=== PATIENT | female | born 1970 | race Caucasian/White ===

== ENCOUNTER 2016-10-14 11:52 | Inpatient (IN) | payer OTHER ==
[2016-10-14 16:35] VITALS: BMI 15.6
--- NOTE | 2016-10-14 16:36 | HP ---
CIWA Score - CIWA Score Nausea/Vomitin-Mild Nausea/No Vomiting Muscle Tremors: 4-Moderate,w/Arms Extend Anxiety: 4-Mod. Anxious/Guarded Agitation: 4-Moderately Restless Paroxysmal Sweats: 1-Minimal Palms Moist Orientation: 1-Uncertain about Date Tacttile Disturbances: 0-None Auditory Disturbances: 0-None Visual Disturbances: 0-None Headache: 0-None Present CIWA-Ar Total Score: 15 Admission ROS S - HPI Chief Complaint: withdrawal sx Allergies/Adverse Reactions: Allergies Allergy/AdvReac Type Severity Reaction Status Date / Time amoxicillin Allergy Severe Hives Verified 10/14/16 16:36 History of Present Illness: 46 years old female with long history of alcohol nicotine dependent, has urine incontinence x 5 years, chronic lower back pain, ambulate with cane, weight loss copd and depression is admitted to detox Exam Limitations: No Limitations - Ebola screening Have you traveled outside of the country in the last 21 days: No Have you had contact with anyone from an Ebola affected area: No Have you been sick,other than usual withdrawal symptoms: No Do you have a fever: No - Review of Systems Constitutional: Loss of Appetite, Changes in sleep, Weakness (right leg), Unintentional Wgt. Loss, Unexplained wgt Loss EENT: reports: No Symptoms Reported Respiratory: reports: SOB with Exertion Cardiac: reports: No Symptoms Reported GI: reports: Nausea, Poor Appetite, Poor Fluid Intake, Indigestion, Abdominal cramping : reports: Incontinence (x years) Musculoskeletal: reports: Back Pain, Joint Pain (both legs), Muscle Pain (both legs), Muscle Weakness (both legs) Integumentary: reports: Change in Color (right great toe), Erythema (right great toe) Neuro: reports: Seizure (10/13/16 treated with neurontin 1200 mg daily,), Tremors Endocrine: reports: No Symptoms Reported Hematology: reports: No Symptoms Reported Psychiatric: reports: Judgement Intact, Anxious, Depressed Other Systems: Reviewed and Negative Patient History - Patient Medical History Hx Anemia: Yes (NO CURRENT TX) Hx Asthma: No Hx Chronic Obstructive Pulmonary Disease (COPD): Yes (HX EMPHYSEMA--NO TX) Hx Cancer: Yes Hx Cardiac Disorders: No Hx Congestive Heart Failure: No Hx Hypertension: No Hx Hypercholesterolemia: No Hx Pacemaker: No HX Cerebrovascular Accident: No Hx Seizures: Yes (alcohol related-last episode was 10/13/16) Hx Dementia: No Hx Diabetes: No Hx Gastrointestinal Disorders: No Hx Liver Disease: Yes (cirhosis of the liver) Hx Genitourinary Disorders: No Hx Sexually Transmitted Disorders: No Hx Renal Disease (ESRD): No Hx Thyroid Disease: No Hx Human Immunodeficiency Virus (HIV): No (NEGATIVE HX) Hx Hepatitis C: No Hx Depression: Yes (NO CURRENT MED) Hx Suicide Attempt: No (DENIES) Hx Bipolar Disorder: No Hx Schizophrenia: No - Patient Surgical History Past Surgical History: Yes Hx Neurologic Surgery: No Hx Cataract Extraction: No Hx Cardiac Surgery: No Hx Lung Surgery: No Hx Breast Surgery: No Hx Breast Biopsy: No Hx Abdominal Surgery: No Hx Appendectomy: No Hx Cholecystectomy: No Hx Genitourinary Surgery: No Hx Section: No Hx Orthopedic Surgery: No Hx Hysterectomy: No Other Surgical History: vein stripping, right leg at age 27 Anesthesia Reaction: No - PPD History Previous Implant?: Yes Documented Results: Negative w/o proof Implanted On Prior [facility] Admission?: Yes Date: 05/28/14 PPD to be Administered?: Yes - Reproductive History Patient is a Female of Child Bearing Age (11 -55 yrs old): Yes Last Menstrual Period: 10/14/14 Patient : No - Smoking Cessation Smoking history: Current every day smoker Have you smoked in the past 12 months: Yes Aproximately how many cigarettes per day: 20 Cigars Per Day: 0 Hx Chewing Tobacco Use: No Initiated information on smoking cessation: Yes 'Breaking Loose' booklet given: 10/14/16 - Substance & Tx. History Hx Alcohol Use: Yes Hx Substance Use: No Substance Use Type: Alcohol Hx Substance Use Treatment: Yes (2014 [facility]) - Substances Abused Alcohol Route: Oral Frequency: Daily Amount used: magnum of wine Age of first use: 17 Date of Last Use: 10/14/16 Family Disease History - Family Disease History Family Disease History: Diabetes: Father (PR; STROKE-), Heart Disease: Father, Mother (PR;STROKE-) Admission Physical Exam S - Physical General Appearance: Yes: Appropriately Dressed, Moderate Distress, Alcohol on Breath, Thin, Tremorous, Irritable, Sweating, Anxious HEENTM: Yes: Hearing grossly Normal, Normal ENT Inspection, Normocephalic, Normal Voice Respiratory: Yes: Chest Non-Tender, No Respiratory Distress, No Accessory Muscle Use, Wheezing, Hyperresonant Neck: Yes: Supple, Trachea in good position Breast: Yes: Breasts Symetrical Cardiology: Yes: Regular Rhythm, S1, S2, Tachycardia Abdominal: Yes: Non Tender, Soft, Increased Bowel Sounds Genitourinary: Yes: Incontinient Back: Yes: Normal Inspection Musculoskeletal: Yes: Gait Steady (cane), Back pain, Muscle Pain (legs), Muscle weakness (both legs) Extremities: Yes: Normal Inspection, Non-Tender, Tremors Neurological: Yes: Alert, Normal Response, Depressed Affect Integumentary: Yes: Warm, Erythema (right great toe) Lymphatic: Yes: Within Normal Limits - Diagnostic (1) Depression Current Visit: Yes Status: Suspected Qualifiers: Depression Type: dysthymia Qualified Code(s): F34.1 - Dysthymic disorder (2) Alcohol dependence with uncomplicated withdrawal Current Visit: Yes Status: Acute (3) Urine incontinence Current Visit: Yes Status: Chronic Qualifiers: Urinary Incontinence type: functional incontinence Qualified Code(s) : R39.81 - Functional urinary incontinence (4) Chronic back pain Current Visit: Yes Status: Chronic Qualifiers: Back pain location: low back pain Back pain laterality: bilateral Sciatica presence: with sciatica Sciatica laterality: bilateral sciatica Qualified Code(s): M54.42 - Lumbago with sciatica, left side; M54.41 - Lumbago with sciatica, right side; G89.29 - Other chronic pain (5) Nicotine dependence Current Visit: Yes Status: Acute Qualifiers: Nicotine product type: cigarettes Substance use status: in withdrawal Qualified Code(s): F17.213 - Nicotine dependence, cigarettes, with withdrawal (6) Weight loss Current Visit: Yes Status: Acute (7) COPD (chronic obstructive pulmonary disease) Current Visit: Yes Status: Chronic Qualifiers: COPD type: emphysema Emphysema type: unilateral Qualified Code(s ): J43.0 - Unilateral pulmonary emphysema [MacLeod's syndrome] (8) Neuropathy Current Visit: Yes Status: Chronic (9) Use of cane as ambulatory aid Current Visit: Yes Status: Chronic (10) GERD (gastroesophageal reflux disease) Current Visit: Yes Status: Chronic Qualifiers: Esophagitis presence: without esophagitis Qualified Code(s): K21.9 - Gastro-esophageal reflux disease without esophagitis (11) Liver cirrhosis Current Visit: Yes Status: Chronic Qualifiers: Hepatic cirrhosis type: alcoholic cirrhosis Ascites presence: without ascites Qualified Code(s): K70.30 - Alcoholic cirrhosis of liver without ascites (12) Ingrown right greater toenail Current Visit: Yes Status: Acute Cleared for Admission [facility] - Detox or Rehab [facility] Level of Care: Medically Managed Detox Regimen/Protocol: Librium S Breath Alcohol Content Breath Alcohol Content: 0
[2016-10-14] MEDS ORDERED: guaiFENesin/D-METHORPHAN HB 10 ML UNIT-DOSE CUPS PO PRN (16:44)
[2016-10-14] MEDS ORDERED: MAGNESIUM CITRATE 300 ML BOTTLE PO PRN (16:44)
[2016-10-14] MEDS ORDERED: MAG HYDROX/AL HYDROX/SIMETH 30 ML UNIT-DOSE CUP PO PRN (16:44)
[2016-10-14] MEDS ORDERED: MENTHOL/PHENOL 1 EACH UD MM PRN (16:44)
[2016-10-14] MEDS ORDERED: ACETAMINOPHEN 325 MG TABLET (FP) PO PRN (16:44)
[2016-10-14] MEDS ORDERED: LOPERAMIDE HCL 2 MG CAPSULE PO PRN (16:44)
[2016-10-14] MEDS ORDERED: NICOTINE POLACRILEX 4 MG GUM BUC PRN (16:44)
[2016-10-14] MEDS ORDERED: P-EPHED 60MG/TRIPROLIDI 2.5MG TABLET PO PRN (16:44)
[2016-10-14] MEDS ORDERED: MAGNESIUM HYDROX 2400MG/30ML ORAL SUSPENSION 30 ML CUP PO PRN (16:44)
[2016-10-14] MEDS ORDERED: chlordiazePOXIDE HCL 25 MG CAPSULE PO ONE (16:44)
[2016-10-14] MEDS ORDERED: diphenhydrAMINE HCL 50 MG CAPSULE PO PRN (16:44)
[2016-10-14] MEDS ORDERED: ALBUTEROL SO4 2.5/IPRATROPIUM 0.5 INH SOL 3 ML VIAL.NEB. NEB PRN (16:48)
[2016-10-14] MEDS ORDERED: ALBUTEROL SO4 6.7 GM HFA INHALER IH PRN (16:48)
[2016-10-14] MEDS ORDERED: ONDANSETRON *ODT* 4 MG TABLET SL PRN (16:48)
[2016-10-14] MEDS: GABAPENTIN 300 MG CAPSULE (FP) PO SCH ×2 (18:13→22:00)
[2016-10-14] MEDS: CLINDAMYCIN HCL 150 MG CAPSULE (FP) PO SCH (21:59)
[2016-10-14] MEDS: METHYL SALICYLATE/MENTHOL OINT 30 GM TUBE TP SCH (21:59)
[2016-10-14] MEDS: RANITIDINE HCL 150 MG TABLET (FP) PO SCH (22:00)
[2016-10-14] MEDS: chlordiazePOXIDE HCL 25 MG CAPSULE PO SCH (22:00)
[2016-10-14] MEDS: THIAMINE HCL 100 MG TABLET (FP) PO SCH (22:00)
[2016-10-14] MEDS: CYCLOBENZAPRINE HCL 10 MG TABLET (FP) PO SCH (22:00)
[2016-10-15 00:15] LABS: URINE APPEARANCE SLCLOUDY; URINE BILIRUBIN NEGATIVE (NEGATIVE); URINE BLOOD NEGATIVE (NEGATIVE); URINE COLOR YELLOW; URINE GLUCOSE (UA) NEGATIVE (NEGATIVE); URINE KETONE TRACE (NEGATIVE); URINE LEUK ESTERASE NEGATIVE (NEGATIVE); URINE NITRITE NEGATIVE (NEGATIVE); URINE PROTEIN NEGATIVE (NEGATIVE); URINE UROBILINOGEN NEGATIVE mg/dL (0.2-1.0)
[2016-10-15] MEDS: CYCLOBENZAPRINE HCL 10 MG TABLET (FP) PO SCH ×3 (05:11→22:20)
[2016-10-15] MEDS: CLINDAMYCIN HCL 150 MG CAPSULE (FP) PO SCH ×3 (05:11→22:20)
[2016-10-15] MEDS: hydrOXYzine PAMOATE 50 MG CAPSULE (FP) PO PRN ×2 (05:11→22:25)
[2016-10-15] MEDS: chlordiazePOXIDE HCL 25 MG CAPSULE PO SCH ×4 (05:11→22:19)
--- NOTE | 2016-10-15 09:31 | EKG ---
Test Reason : Blood Pressure : / mmHG Vent. Rate : 081 BPM Atrial Rate : 081 BPM P-R Int : 162 ms QRS Dur : 094 ms QT Int : 394 ms P-R-T Axes : 078 082 070 degrees QTc Int : 457 ms NORMAL SINUS RHYTHM NORMAL ECG NO PREVIOUS ECGS AVAILABLE Confirmed by MD IGNACIO, SHORTY ([id number]) on 10/15/2016 9:30:38 AM Referred By: Rodri Dobson Confirmed By:SHORTY PIERRE MD
[2016-10-15] MEDS: RANITIDINE HCL 150 MG TABLET (FP) PO SCH ×2 (10:15→22:20)
[2016-10-15] MEDS: PRENATAL VITAMINS W/ FOLIC ACID TABLET (FP) PO SCH (10:15)
[2016-10-15] MEDS: LIDOCAINE 5% TOPICAL PATCH TP SCH (10:16)
[2016-10-15] MEDS: GABAPENTIN 300 MG CAPSULE (FP) PO SCH ×3 (10:16→22:20)
[2016-10-15] MEDS: NICOTINE 21 MG/24 HOURS TOPICAL PATCH TD SCH (10:17)
[2016-10-15] MEDS: METHYL SALICYLATE/MENTHOL OINT 30 GM TUBE TP SCH ×2 (10:20→22:19)
--- NOTE | 2016-10-15 10:23 | PN ---
S CIWA - CIWA Score Nausea/Vomitin-Mild Nausea/No Vomiting Muscle Tremors: 2 Anxiety: 3 Agitation: 3 Paroxysmal Sweats: 3 Orientation: 0-Oriented Tacttile Disturbances: 1-Very Mild Itch/Numbness Auditory Disturbances: 0-None Visual Disturbances: 0-None Headache: 2-Mild CIWA-Ar Total Score: 15 BHS Progress Note (SOAP) Subjective: dizziness, shakes, sweats and pain Objective: 10/15/16 10:30 Vital Signs - 8 hr 10/15/16 10/15/16 06:29 10:00 Temperature 98.1 F 98.1 F Pulse Rate 79 89 Respiratory 18 18 Rate Blood Pressure 145/95 126/89 Laboratory Last Values Urine Color Yellow 10/14/16 22:29 Urine Appearance Slcloudy 10/14/16 22:29 Urine pH 5.0 (5.0-8.0) D 10/14/16 22:29 Ur Specific [place] 1.015 (1.005-1.025) 10/14/16 22:29 Urine Protein Negative (NEGATIVE) 10/14/16 22:29 Urine Glucose (UA) Negative (NEGATIVE) 10/14/16 22:29 Urine Ketones Trace (NEGATIVE) H 10/14/16 22:29 Urine Blood Negative (NEGATIVE) 10/14/16 22:29 Urine Nitrite Negative (NEGATIVE) 10/14/16 22:29 Urine Bilirubin Negative (NEGATIVE) 10/14/16 22:29 Urine Urobilinogen Negative mg/dL (0.2-1.0) 10/14/16 22:29 Ur Leukocyte Esterase Negative (NEGATIVE) 10/14/16 22:29 UA noted, labs pending Assessment: 10/15/16 10:31 withdrawal sx Plan: continue detox
[2016-10-15 11:04] LABS: ALBUMIN 3.5 g/dl (3.4-5.0); ANION GAP 8 (8-16); CALCIUM 8.6 mg/dL (8.5-10.1); CO2 31 mmol/L (21-32); CREATININE 0.5 mg/dL (0.55-1.02); GLUCOSE,RANDOM 81 mg/dL (74-106); SGOT/AST 65 U/L (15-37); SGPT/ALT 57 U/L (12-78)
[2016-10-15 11:05] LABS: ALK PHOS 58 U/L (45-117); BILIRUBIN,TOTAL 0.8 mg/dL (0.2-1.0)
[2016-10-15 11:08] LABS: MCH 33.6 pg (25.7-33.7); MCHC 33.2 g/dl (32.0-36.0); MEAN CELL VOLUME 101.3 fl (80-96); MEAN PLT VOLUME 7.8 fl (7.5-11.1); PLATELET COUNT 85 K/MM3 (134-434); RDW 13.9 % (11.6-15.6); WHITE BLOOD COUNT 3.3 K/mm3 (4.0-10.0)
[2016-10-15] MEDS: chlordiazePOXIDE HCL 25 MG CAPSULE PO PRN (14:48)
--- NOTE | 2016-10-15 18:28 | CONSULT ---
[facility] Psychiatric Consult - Data Date of interview: 10/15/16 Admission source: [facility] Identifying data: Readmission to [facility] for this 46 y/o female seeking detox treatment on for alcohol dependence.Patient is single without children,domiciled,unemployed and supported on Public Assistance. Substance Abuse History: Discussed with the patient in this interview. Smoking Cessation. Smoking history: Current every day smoker. Have you smoked in the past 12 months: Yes. Aproximately how many cigarettes per day: 20. Cigars Per Day: 0. Hx Chewing Tobacco Use: No. Initiated information on smoking cessation : Yes. 'Breaking Loose' booklet given: 10/14/16. - Substance & Tx. History. Hx Alcohol Use: Yes. Hx Substance Use: No. Substance Use Type: Alcohol. Hx Substance Use Treatment: Yes (2014). - Substances Abused. Alcohol. Route: Oral. Frequency: Daily. Amount used: magnum of wine. Age of first use: 17. Date of Last Use: 10/14/16 Medical History: Weight loss,GERD,anemia,lower back pain,neuropathy,COPD,alcohol -related seizures and cirrhosis of the liver. Psychiatric History: No reported history of psychiatric hospitalizations.Patient is currently seeing a psychiatrist at the [facility] for medication management (vistaril,wellbutrin,trazodone and neurontin).Diagnosed with MDD and Anxiety Disorder.Ms Starr denies history of suicide attempts. Physical/Sexual Abuse/Trauma History: Patient denies history of abuse. Mental Status Exam - Mental Status Exam Alert and Oriented to: Time, Place, Person Cognitive Function: Good Patient Appearance: Well Groomed (thin,emaciated appearance) Mood: Nervous, Anxious Affect: Mood Congruent, Constricted Patient Behavior: Fatigued, Appropriate, Cooperative Speech Pattern: Clear Voice Loudness: Normal Thought Process: Goal Oriented Thought Disorder: Not Present Hallucinations: Denies Suicidal Ideation: Denies Homicidal Ideation: Denies Insight/Judgement: Poor Sleep: Poorly, Difficulty falling asleep Appetite: Poor, Weight loss Gait/Station: Other (not observed ; patient is resting in bed ; noted report of cane for ambulation) Psychiatric Findings - Problem List ([place] 1, 2,3) (1) Alcohol dependence with uncomplicated withdrawal Current Visit: Yes Status: Acute (2) Nicotine dependence Current Visit: Yes Status: Acute Qualifiers: Nicotine product type: cigarettes Substance use status: in withdrawal Qualified Code(s): F17.213 - Nicotine dependence, cigarettes, with withdrawal (3) Substance induced mood disorder Current Visit: Yes Status: Acute (4) Depressive disorder Current Visit: Yes Status: Chronic (5) Weight loss Current Visit: Yes Status: Chronic (6) COPD (chronic obstructive pulmonary disease) Current Visit: Yes Status: Chronic Qualifiers: COPD type: emphysema Emphysema type: unilateral Qualified Code(s ): J43.0 - Unilateral pulmonary emphysema [MacLeod's syndrome] (7) Chronic back pain Current Visit: Yes Status: Chronic Qualifiers: Back pain location: low back pain Back pain laterality: bilateral Sciatica presence: with sciatica Sciatica laterality: bilateral sciatica Qualified Code(s): M54.42 - Lumbago with sciatica, left side; G89.29 - Other chronic pain (8) Liver cirrhosis Current Visit: Yes Status: Chronic Qualifiers: Hepatic cirrhosis type: alcoholic cirrhosis Ascites presence: without ascites Qualified Code(s): K70.30 - Alcoholic cirrhosis of liver without ascites (9) Neuropathy Current Visit: Yes Status: Chronic (10) Anemia Current Visit: No Status: Chronic (11) Hx of emphysema Current Visit: No Status: Chronic (12) Seizure disorder Current Visit: No Status: Chronic (13) Insomnia Current Visit: Yes Status: Acute - Initial Treatment Plan Initial Treatment Plan: Psychoeducation.Detoxification.Medication : wellbutrin XL 150 mg po daily.Patient is made aware of risk for seizures.Trazodone witheld (risk of oversedation).Patient is in agreement with his careplan.NO need for scripts at discharge (refill dated 10/04/16 at [facility] + [phone]).Observation.
[2016-10-15] MEDS ORDERED: traZODone HCL 100 MG TABLET (FP) PO SCH (22:00)
[2016-10-15] MEDS: LIDOCAINE PATCH REMOVAL MC SCH (22:21)
[2016-10-15] MEDS: THIAMINE HCL 100 MG TABLET (FP) PO SCH (22:21)
[2016-10-16] MEDS: CLINDAMYCIN HCL 150 MG CAPSULE (FP) PO SCH ×3 (06:19→22:03)
[2016-10-16] MEDS: CYCLOBENZAPRINE HCL 10 MG TABLET (FP) PO SCH ×3 (06:19→22:03)
[2016-10-16] MEDS: chlordiazePOXIDE HCL 25 MG CAPSULE PO SCH ×3 (06:19→17:26)
[2016-10-16] MEDS: METHYL SALICYLATE/MENTHOL OINT 30 GM TUBE TP SCH ×2 (10:11→22:02)
[2016-10-16] MEDS: NICOTINE 21 MG/24 HOURS TOPICAL PATCH TD SCH (10:12)
[2016-10-16] MEDS: LIDOCAINE 5% TOPICAL PATCH TP SCH (10:12)
[2016-10-16] MEDS: PRENATAL VITAMINS W/ FOLIC ACID TABLET (FP) PO SCH (10:12)
[2016-10-16] MEDS: GABAPENTIN 300 MG CAPSULE (FP) PO SCH ×3 (10:12→22:03)
[2016-10-16] MEDS: RANITIDINE HCL 150 MG TABLET (FP) PO SCH ×2 (10:12→22:03)
[2016-10-16] MEDS: chlordiazePOXIDE HCL 25 MG CAPSULE PO PRN (11:04)
--- NOTE | 2016-10-16 16:09 | PN ---
[facility] CIWA - CIWA Score Nausea/Vomitin-No Nausea/No Vomiting Muscle Tremors: 4-Moderate,w/Arms Extend Anxiety: 4-Mod. Anxious/Guarded Agitation: 3 Paroxysmal Sweats: 3 Orientation: 0-Oriented Tacttile Disturbances: 1-Very Mild Itch/Numbness Auditory Disturbances: 0-None Visual Disturbances: 0-None Headache: 0-None Present CIWA-Ar Total Score: 15 BHS Progress Note (SOAP) Subjective: Anxiety,tremors,sweating,interrupted sleep,restless Objective: 10/16/16 16:09 Vital Signs - 8 hr 10/16/16 10/16/16 10:00 14:29 Temperature 97.2 F L 97.9 F Pulse Rate 79 66 Respiratory 18 18 Rate Blood Pressure 120/83 114/78 Laboratory Last Values WBC 3.3 K/mm3 (4.0-10.0) L D 10/15/16 07:50 RBC 3.88 M/mm3 (3.60-5.2) 10/15/16 07:50 Hgb 13.0 GM/dL (10.7-15.3) 10/15/16 07:50 Hct 39.3 % (32.4-45.2) 10/15/16 07:50 MCV 101.3 fl (80-96) H 10/15/16 07:50 MCH 33.6 pg (25.7-33.7) 10/15/16 07:50 MCHC 33.2 g/dl (32.0-36.0) 10/15/16 07:50 RDW 13.9 % (11.6-15.6) D 10/15/16 07:50 Plt Count 85 K/MM3 (134-434) L D 10/15/16 07:50 MPV 7.8 fl (7.5-11.1) 10/15/16 07:50 Sodium 143 mmol/L (136-145) 10/15/16 07:50 Potassium 3.6 mmol/L (3.5-5.1) 10/15/16 07:50 Chloride 104 mmol/L (98-107) 10/15/16 07:50 Carbon Dioxide 31 mmol/L (21-32) D 10/15/16 07:50 Anion Gap 8 (8-16) 10/15/16 07:50 BUN 6 mg/dL (7-18) L D 10/15/16 07:50 Creatinine 0.5 mg/dL (0.55-1.02) L D 10/15/16 07:50 Creat Clearance w eGFR > 60 (>60) 10/15/16 07:50 Random Glucose 81 mg/dL (74-106) 10/15/16 07:50 Calcium 8.6 mg/dL (8.5-10.1) 10/15/16 07:50 Total Bilirubin 0.8 mg/dL (0.2-1.0) 10/15/16 07:50 AST 65 U/L (15-37) H D 10/15/16 07:50 ALT 57 U/L (12-78) D 10/15/16 07:50 Alkaline Phosphatase 58 U/L (45-117) D 10/15/16 07:50 Total Protein 6.0 g/dl (6.4-8.2) L D 10/15/16 07:50 Albumin 3.5 g/dl (3.4-5.0) 10/15/16 07:50 Urine Color Yellow 10/14/16 22:29 Urine Appearance Slcloudy 10/14/16 22:29 Urine pH 5.0 (5.0-8.0) D 10/14/16 22:29 Ur Specific [place] 1.015 (1.005-1.025) 10/14/16 22:29 Urine Protein Negative (NEGATIVE) 10/14/16 22:29 Urine Glucose (UA) Negative (NEGATIVE) 10/14/16 22:29 Urine Ketones Trace (NEGATIVE) H 10/14/16 22:29 Urine Blood Negative (NEGATIVE) 10/14/16 22:29 Urine Nitrite Negative (NEGATIVE) 10/14/16 22:29 Urine Bilirubin Negative (NEGATIVE) 10/14/16 22:29 Urine Urobilinogen Negative mg/dL (0.2-1.0) 10/14/16 22:29 Ur Leukocyte Esterase Negative (NEGATIVE) 10/14/16 22:29 RPR Titer Nonreactive (NONREACTIVE) 10/15/16 07:50 labs noted Assessment: 10/16/16 16:09 Withdrawal sx. Plan: Continue detox
[2016-10-16] MEDS: hydrOXYzine PAMOATE 50 MG CAPSULE (FP) PO PRN (17:27)
[2016-10-16] MEDS: chlordiazePOXIDE 5 MG CAPSULE PO SCH (22:03)
[2016-10-16] MEDS: THIAMINE HCL 100 MG TABLET (FP) PO SCH (22:03)
[2016-10-16] MEDS: LIDOCAINE PATCH REMOVAL MC SCH (22:04)
[2016-10-17] MEDS: hydrOXYzine PAMOATE 50 MG CAPSULE (FP) PO PRN ×3 (00:54→22:07)
[2016-10-17] MEDS: CYCLOBENZAPRINE HCL 10 MG TABLET (FP) PO SCH ×3 (05:07→22:06)
[2016-10-17] MEDS: chlordiazePOXIDE 5 MG CAPSULE PO SCH ×3 (05:07→17:24)
[2016-10-17] MEDS: CLINDAMYCIN HCL 150 MG CAPSULE (FP) PO SCH ×3 (05:07→22:07)
[2016-10-17] MEDS: LIDOCAINE 5% TOPICAL PATCH TP SCH (10:06)
[2016-10-17] MEDS: GABAPENTIN 300 MG CAPSULE (FP) PO SCH ×3 (10:07→22:05)
[2016-10-17] MEDS: METHYL SALICYLATE/MENTHOL OINT 30 GM TUBE TP SCH ×2 (10:07→22:05)
[2016-10-17] MEDS: NICOTINE 21 MG/24 HOURS TOPICAL PATCH TD SCH (10:07)
[2016-10-17] MEDS: PRENATAL VITAMINS W/ FOLIC ACID TABLET (FP) PO SCH (10:07)
[2016-10-17] MEDS: RANITIDINE HCL 150 MG TABLET (FP) PO SCH ×2 (10:07→22:06)
[2016-10-17] MEDS ORDERED: IBUPROFEN 600 MG TABLET (FP) PO PRN (10:28)
--- NOTE | 2016-10-17 10:32 | PN ---
BHS Progress Note (SOAP) Subjective: Tremors,sweating,joint pain,interrupted sleep Objective: 10/17/16 10:32 Vital Signs - 8 hr 10/17/16 10/17/16 10/17/16 03:30 06:00 09:38 Temperature 97.2 F L 97.7 F Pulse Rate 65 80 Respiratory 18 16 18 Rate Blood Pressure 115/76 110/80 Laboratory Last Values WBC 3.3 K/mm3 (4.0-10.0) L D 10/15/16 07:50 RBC 3.88 M/mm3 (3.60-5.2) 10/15/16 07:50 Hgb 13.0 GM/dL (10.7-15.3) 10/15/16 07:50 Hct 39.3 % (32.4-45.2) 10/15/16 07:50 MCV 101.3 fl (80-96) H 10/15/16 07:50 MCH 33.6 pg (25.7-33.7) 10/15/16 07:50 MCHC 33.2 g/dl (32.0-36.0) 10/15/16 07:50 RDW 13.9 % (11.6-15.6) D 10/15/16 07:50 Plt Count 85 K/MM3 (134-434) L D 10/15/16 07:50 MPV 7.8 fl (7.5-11.1) 10/15/16 07:50 Sodium 143 mmol/L (136-145) 10/15/16 07:50 Potassium 3.6 mmol/L (3.5-5.1) 10/15/16 07:50 Chloride 104 mmol/L (98-107) 10/15/16 07:50 Carbon Dioxide 31 mmol/L (21-32) D 10/15/16 07:50 Anion Gap 8 (8-16) 10/15/16 07:50 BUN 6 mg/dL (7-18) L D 10/15/16 07:50 Creatinine 0.5 mg/dL (0.55-1.02) L D 10/15/16 07:50 Creat Clearance w eGFR > 60 (>60) 10/15/16 07:50 Random Glucose 81 mg/dL (74-106) 10/15/16 07:50 Calcium 8.6 mg/dL (8.5-10.1) 10/15/16 07:50 Total Bilirubin 0.8 mg/dL (0.2-1.0) 10/15/16 07:50 AST 65 U/L (15-37) H D 10/15/16 07:50 ALT 57 U/L (12-78) D 10/15/16 07:50 Alkaline Phosphatase 58 U/L (45-117) D 10/15/16 07:50 Total Protein 6.0 g/dl (6.4-8.2) L D 10/15/16 07:50 Albumin 3.5 g/dl (3.4-5.0) 10/15/16 07:50 Urine Color Yellow 10/14/16 22:29 Urine Appearance Slcloudy 10/14/16 22:29 Urine pH 5.0 (5.0-8.0) D 10/14/16 22:29 Ur Specific [place] 1.015 (1.005-1.025) 10/14/16 22:29 Urine Protein Negative (NEGATIVE) 10/14/16 22:29 Urine Glucose (UA) Negative (NEGATIVE) 10/14/16 22:29 Urine Ketones Trace (NEGATIVE) H 10/14/16 22:29 Urine Blood Negative (NEGATIVE) 10/14/16 22:29 Urine Nitrite Negative (NEGATIVE) 10/14/16 22:29 Urine Bilirubin Negative (NEGATIVE) 10/14/16 22:29 Urine Urobilinogen Negative mg/dL (0.2-1.0) 10/14/16 22:29 Ur Leukocyte Esterase Negative (NEGATIVE) 10/14/16 22:29 RPR Titer Nonreactive (NONREACTIVE) 10/15/16 07:50 labs noted Assessment: 10/17/16 10:32 Withdrawal sx. Plan: Continue detox
[2016-10-17] MEDS: THIAMINE HCL 100 MG TABLET (FP) PO SCH (22:05)
[2016-10-17] MEDS: chlordiazePOXIDE HCL 10 MG CAPSULE PO SCH (22:06)
[2016-10-17] MEDS: LIDOCAINE PATCH REMOVAL MC SCH (22:55)
[2016-10-18] MEDS: chlordiazePOXIDE HCL 10 MG CAPSULE PO SCH (05:16)
[2016-10-18] MEDS: CYCLOBENZAPRINE HCL 10 MG TABLET (FP) PO SCH (05:16)
[2016-10-18] MEDS: CLINDAMYCIN HCL 150 MG CAPSULE (FP) PO SCH (05:16)
[2016-10-18 06:32] VITALS: TEMP 97.7
--- NOTE | 2016-10-18 08:41 | DS ---
[facility] Detox Discharge Summary Admission Date: 10/14/16 Discharge Date: 10/18/16 - History Present History: Alcohol Dependence Pertinent Past History: insomnia, anxiety, depression, nictine dependence, ingrown toenail - Physical Exam Results Vital Signs: Vital Signs Temperature 97.7 F 10/18/16 06:32 Pulse Rate 66 10/18/16 06:32 Respiratory Rate 18 10/18/16 06:32 Blood Pressure 118/76 10/18/16 06:32 O2 Sat by Pulse Oximetry (%) Laboratory Tests 10/14/16 10/15/16 10/15/16 22:29 07:50 07:50 WBC 3.3 L D RBC 3.88 Hgb 13.0 Hct 39.3 MCV 101.3 H MCH 33.6 MCHC 33.2 RDW 13.9 D Plt Count 85 L D MPV 7.8 Sodium 143 Potassium 3.6 Chloride 104 Carbon Dioxide 31 D Anion Gap 8 BUN 6 L D Creatinine 0.5 L D Creat Clearance w eGFR > 60 Random Glucose 81 Calcium 8.6 Total Bilirubin 0.8 AST 65 H D ALT 57 D Alkaline Phosphatase 58 D Total Protein 6.0 L D Albumin 3.5 Urine Color Yellow Urine Appearance Slcloudy Urine pH 5.0 D Ur Specific [place] 1.015 Urine Protein Negative Urine Glucose (UA) Negative Urine Ketones Trace H Urine Blood Negative Urine Nitrite Negative Urine Bilirubin Negative Urine Urobilinogen Negative Ur Leukocyte Esterase Negative RPR Titer 10/15/16 07:50 WBC RBC Hgb Hct MCV MCH MCHC RDW Plt Count MPV Sodium Potassium Chloride Carbon Dioxide Anion Gap BUN Creatinine Creat Clearance w eGFR Random Glucose Calcium Total Bilirubin AST ALT Alkaline Phosphatase Total Protein Albumin Urine Color Urine Appearance Urine pH Ur Specific [place] Urine Protein Urine Glucose (UA) Urine Ketones Urine Blood Urine Nitrite Urine Bilirubin Urine Urobilinogen Ur Leukocyte Esterase RPR Titer Nonreactive Pertinent Admission Physical Exam Findings: withdrawal sx - Treatment Hospital Course: Detox Protocol Followed, Detoxed Safely, Responded well, Discharged Condition Good, Rehab Referral Accepted - Medication Discharge Medications: Ambulatory Orders Albuterol Sulfate Inhaler - [Ventolin HFA Inhaler -] 2 inh PO Q4H PRN 10/14/16 Amlodipine Besylate [Norvasc -] 5 mg PO DAILY 10/14/16 Gabapentin [Neurontin -] 300 mg PO BID 09/08/17 Gabapentin [Neurontin -] 600 mg PO HS 10/14/16 - Diagnosis (1) Alcohol dependence with uncomplicated withdrawal Current Visit: Yes Status: Chronic (2) Ingrown right greater toenail Current Visit: Yes Status: Chronic (3) Nicotine dependence Current Visit: Yes Status: Acute Qualifiers: Nicotine product type: cigarettes Substance use status: in withdrawal Qualified Code(s): F17.213 - Nicotine dependence, cigarettes, with withdrawal (4) Substance induced mood disorder Current Visit: Yes Status: Acute (5) COPD (chronic obstructive pulmonary disease) Current Visit: Yes Status: Chronic Qualifiers: COPD type: emphysema Emphysema type: unilateral Qualified Code(s ): J43.0 - Unilateral pulmonary emphysema [MacLeod's syndrome] (6) Chronic back pain Current Visit: Yes Status: Chronic Qualifiers: Back pain location: low back pain Back pain laterality: bilateral Sciatica presence: with sciatica Sciatica laterality: bilateral sciatica Qualified Code(s): M54.42 - Lumbago with sciatica, left side; G89.29 - Other chronic pain (7) GERD (gastroesophageal reflux disease) Current Visit: Yes Status: Chronic Qualifiers: Esophagitis presence: without esophagitis Qualified Code(s): K21.9 - Gastro-esophageal reflux disease without esophagitis (8) Liver cirrhosis Current Visit: Yes Status: Chronic Qualifiers: Hepatic cirrhosis type: alcoholic cirrhosis Ascites presence: without ascites Qualified Code(s): K70.30 - Alcoholic cirrhosis of liver without ascites (9) Neuropathy Current Visit: Yes Status: Chronic (10) Urine incontinence Current Visit: Yes Status: Chronic Qualifiers: Urinary Incontinence type: functional incontinence Qualified Code(s) : R39.81 - Functional urinary incontinence (11) Weight loss Current Visit: Yes Status: Chronic (12) Depression Current Visit: Yes Status: Suspected Qualifiers: Depression Type: dysthymia Qualified Code(s): F34.1 - Dysthymic disorder (13) Seizure disorder Current Visit: No Status: Inactive - AMA Did Patient Leave Against Medical Advice: No
[2016-10-18] MEDS: RANITIDINE HCL 150 MG TABLET (FP) PO SCH (09:41)
[2016-10-18] MEDS: PRENATAL VITAMINS W/ FOLIC ACID TABLET (FP) PO SCH (09:41)
[2016-10-18] MEDS: GABAPENTIN 300 MG CAPSULE (FP) PO SCH (09:41)
[2016-10-18 10:22] VITALS: BP 100/72; PULSE 89
== END 2016-10-18 09:52 | disposition home or self-care (01) | DRG 775 ==
LOC: YASAS 11:52 → Y6N 16:59
PROVIDERS: ADMIT Internal Medicine Addiction Medicine; ATTEND Internal Medicine Addiction Medicine
PROC: HZ2ZZZZ Detoxification Services for Substance Abuse Treatment (ICD-10-PCS; principal; 2016-10-14)
DX: F10.230 Alcohol dependence with withdrawal, uncomplicated (principal); F17.213 Nicotine dependence, cigarettes, with withdrawal; F19.24 Other psychoactive substance dependence with psychoactive substance-induced mood disorder; F34.1 Dysthymic disorder; R00.0 Tachycardia, unspecified; J43.0 Unilateral pulmonary emphysema [MacLeod's syndrome]; M54.42 Lumbago with sciatica, left side; K21.9 Gastro-esophageal reflux disease without esophagitis; K70.30 Alcoholic cirrhosis of liver without ascites; G89.29 Other chronic pain; G62.9 Polyneuropathy, unspecified; G40.909 Epilepsy, unspecified, not intractable, without status epilepticus; G47.00 Insomnia, unspecified; R39.81 Functional urinary incontinence; R26.2 Difficulty in walking, not elsewhere classified; L60.0 Ingrowing nail; Z99.89 Dependence on other enabling machines and devices; Z87.898 Personal history of other specified conditions; Z88.1 Allergy status to other antibiotic agents
CPT/HCPCS: 36415; 80053; 81003; 85027; 86593; 93005; 93010

== ENCOUNTER 2018-08-03 16:49 | Inpatient (IN) | payer OTHER ==
[2018-08-03 23:00] VITALS: BMI 16.6
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
[2018-08-04] MEDS ORDERED: MAG HYDROX/AL HYDROX/SIMETH 30 ML UNIT-DOSE CUP PO PRN (00:33)
[2018-08-04] MEDS ORDERED: BISMUTH SUBSALICYLATE 524 MG/30 ML UD PO PRN (00:33)
[2018-08-04] MEDS ORDERED: chlordiazePOXIDE HCL 25 MG CAPSULE PO PRN (00:33)
[2018-08-04] MEDS ORDERED: MELATONIN 5 MG TABLETS PO PRN (00:33)
[2018-08-04] MEDS ORDERED: MAGNESIUM HYDROX 2400MG/30ML ORAL SUSPENSION 30 ML CUP PO PRN (00:33)
[2018-08-04] MEDS ORDERED: chlordiazePOXIDE HCL 25 MG CAPSULE PO ONE (00:33)
[2018-08-04] MEDS ORDERED: ACETAMINOPHEN 325 MG TABLET (FP) PO PRN ×2 (00:33)
[2018-08-04] MEDS ORDERED: MAGNESIUM CITRATE 300 ML BOTTLE PO PRN (00:33)
[2018-08-04] MEDS ORDERED: MENTHOL/PHENOL 1 EACH UD MM PRN (00:33)
[2018-08-04] MEDS ORDERED: traZODone HCL 100 MG TABLET (FP) PO ONE (00:40)
[2018-08-04] MEDS ORDERED: ALBUTEROL SO4 0.083% IH SOL 2.5 MG/3 ML VIAL.NEB. NEB PRN (00:41)
[2018-08-04] MEDS: GABAPENTIN 300 MG CAPSULE (FP) PO SCH ×3 (02:13→18:53)
[2018-08-04] MEDS: NADOLOL 40 MG TABLET (FP) PO SCH ×2 (03:32→23:43)
[2018-08-04] MEDS: chlordiazePOXIDE HCL 25 MG CAPSULE PO SCH ×4 (06:33→22:18)
[2018-08-04] MEDS ORDERED: BACITRACIN 0.9 GM PACKET ONE (09:29)
--- NOTE | 2018-08-04 09:47 | PN ---
[facility] CIWA - CIWA Score Nausea/Vomitin-No Nausea/No Vomiting Muscle Tremors: 2 Anxiety: 3 Agitation: 1-Slight > Activity Paroxysmal Sweats: 4-Forehead w/Sweat Beads Orientation: 0-Oriented Tacttile Disturbances: 2-Mild Itch/Numbness/Burn Auditory Disturbances: 0-None Visual Disturbances: 0-None Headache: 1-Very Mild CIWA-Ar Total Score: 13 [facility] Progress Note (SOAP) Subjective: c/o sweats, anxiety, mild shakes, and mild headache. Objective: 08/04/18 09:45 Vital Signs 08/04/18 06:00 Temperature 98.4 F Pulse Rate 73 Respiratory 16 Rate Blood Pressure 96/58 L Labs pending. Assessment: 08/04/18 09:46 AOX3, in no acute distress Full ROM withdrawal symptoms. Plan: continue detox increase fluids.
[2018-08-04 10:24] LABS: ALBUMIN 3.4 g/dl (3.4-5.0); BILIRUBIN,TOTAL 0.6 mg/dL (0.2-1); BLOOD UREA NITROGEN 4.9 mg/dL (7-18); CALCIUM 8.9 mg/dL (8.5-10.1); CREATININE 0.5 mg/dL (0.55-1.3); POTASSIUM 3.7 mmol/L (3.5-5.1); TOT PROT 5.8 g/dl (6.4-8.2)
[2018-08-04 10:26] LABS: HEMATOCRIT 35.1 % (32.4-45.2); HEMOGLOBIN 11.7 GM/dL (10.7-15.3); MCH 32.6 pg (25.7-33.7); MCHC 33.4 g/dl (32.0-36.0); MEAN CELL VOLUME 97.6 fl (80-96); MEAN PLT VOLUME 7.3 fl (7.5-11.1)
[2018-08-04] MEDS: NICOTINE 21 MG/24 HOURS TOPICAL PATCH TD SCH (11:00)
[2018-08-04] MEDS: BACITRACIN 15 GM TUBE TOPICAL OINTMENT TP SCH ×2 (11:00→23:44)
[2018-08-04] MEDS: PANTOPRAZOLE 20 MG TABLET (FP) PO SCH ×2 (11:00→22:18)
[2018-08-04] MEDS: PRENATAL VITAMINS W/ FOLIC ACID TABLET (FP) PO SCH (11:00)
[2018-08-04 11:17] LABS: PLATELET COUNT 251 K/MM3 (134-434)
--- NOTE | 2018-08-04 14:22 | PN ---
S Progress Note Note: Psychiatry Attending's note : Came to see this patient. Scheduled for psychiatric interview. Found resting comfortably. Asleep. Examination deferred.
[2018-08-04] MEDS: THIAMINE HCL 100 MG TABLET (FP) PO SCH (22:18)
[2018-08-04] MEDS: NICOTINE POLACRILEX 2 MG GUM BUC PRN (22:19)
[2018-08-05] MEDS: chlordiazePOXIDE HCL 25 MG CAPSULE PO SCH ×4 (06:16→23:08)
[2018-08-05] MEDS: GABAPENTIN 300 MG CAPSULE (FP) PO SCH ×4 (06:37→22:21)
[2018-08-05] MEDS ORDERED: BACITRACIN 0.9 GM PACKET ONE (09:39)
[2018-08-05] MEDS: PRENATAL VITAMINS W/ FOLIC ACID TABLET (FP) PO SCH (10:35)
[2018-08-05] MEDS: PANTOPRAZOLE 20 MG TABLET (FP) PO SCH ×2 (10:35→22:22)
[2018-08-05] MEDS: NICOTINE 21 MG/24 HOURS TOPICAL PATCH TD SCH (10:37)
[2018-08-05] MEDS: BACITRACIN 15 GM TUBE TOPICAL OINTMENT TP SCH ×2 (10:45→22:23)
[2018-08-05] MEDS: NICOTINE POLACRILEX 2 MG GUM BUC PRN (11:06)
[2018-08-05] MEDS ORDERED: ONDANSETRON *ODT* 4 MG TABLET SL PRN (12:52)
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
--- NOTE | 2018-08-05 13:36 | PN ---
S CIWA - CIWA Score Nausea/Vomitin Muscle Tremors: 4-Moderate,w/Arms Extend Anxiety: 4-Mod. Anxious/Guarded Agitation: 4-Moderately Restless Paroxysmal Sweats: 3 Orientation: 0-Oriented Tacttile Disturbances: 0-None Auditory Disturbances: 0-None Visual Disturbances: 0-None Headache: 0-None Present CIWA-Ar Total Score: 17 BHS Progress Note (SOAP) Subjective: Tremor, headache, nausea, diarrhea, anxious Objective: 08/05/18 13:34 Last Vital Signs Temp Pulse Resp BP Pulse Ox 97.9 F 65 18 94/67 08/05/18 11:22 08/05/18 11:22 08/05/18 11:22 08/05/18 11:22 Laboratory Tests 08/04/18 08/04/18 08/04/18 07:50 07:50 07:50 WBC 3.0 L RBC 3.60 Hgb 11.7 Hct 35.1 MCV 97.6 H MCH 32.6 MCHC 33.4 RDW 21.0 H Plt Count 251 D MPV 7.3 L Sodium 140 Potassium 3.7 Chloride 105 Carbon Dioxide 30 Anion Gap 5 L BUN 4.9 L Creatinine 0.5 L Est GFR (CKD-EPI)AfAm 133.58 Est GFR (CKD-EPI)NonAf 115.25 Random Glucose 95 Calcium 8.9 Total Bilirubin 0.6 AST 28 ALT 32 Alkaline Phosphatase 81 Total Protein 5.8 L Albumin 3.4 RPR Titer Nonreactive Labs reviewed Assessment: 08/05/18 13:35 Withdrawal symptoms Plan: Continue detox Encouraged PO water intake
[2018-08-05] MEDS ORDERED: traZODone HCL 150 MG TABLET PO SCH (22:00)
[2018-08-05] MEDS: THIAMINE HCL 100 MG TABLET (FP) PO SCH (22:22)
[2018-08-05] MEDS: NADOLOL 40 MG TABLET (FP) PO SCH (22:23)
[2018-08-05] MEDS ORDERED: traZODone HCL 100 MG TABLET (FP) ONE (23:05)
[2018-08-05] MEDS ORDERED: traZODone HCL 50 MG TABLET (FP) ONE (23:05)
[2018-08-05] MEDS: traZODone HCL 100 MG, traZODone HCL 50 MG PO SCH (23:07)
--- NOTE | 2018-08-06 00:09 | EKG ---
Test Reason : Blood Pressure : / mmHG Vent. Rate : 074 BPM Atrial Rate : 074 BPM P-R Int : 180 ms QRS Dur : 096 ms QT Int : 444 ms P-R-T Axes : 072 070 065 degrees QTc Int : 492 ms NORMAL SINUS RHYTHM PROLONGED QT ABNORMAL ECG WHEN COMPARED WITH ECG OF 14-OCT-2016 17:18, NO SIGNIFICANT CHANGE WAS FOUND Confirmed by MD Mack, Evert ([id number]) on 08/06/2018 12:08:40 AM Referred By: Confirmed By:Evert Giron MD
[2018-08-06] MEDS ORDERED: chlordiazePOXIDE HCL 10 MG CAPSULE PO PRN (05:00)
[2018-08-06] MEDS: chlordiazePOXIDE HCL 10 MG CAPSULE PO SCH ×4 (05:44→22:08)
[2018-08-06] MEDS: GABAPENTIN 300 MG CAPSULE (FP) PO SCH ×3 (05:44→22:07)
[2018-08-06] MEDS ORDERED: BACITRACIN 0.9 GM PACKET ONE (09:34)
[2018-08-06] MEDS: PANTOPRAZOLE 20 MG TABLET (FP) PO SCH ×2 (10:29→22:08)
[2018-08-06] MEDS: PRENATAL VITAMINS W/ FOLIC ACID TABLET (FP) PO SCH (10:29)
[2018-08-06] MEDS: BACITRACIN 15 GM TUBE TOPICAL OINTMENT TP SCH ×2 (10:29→22:05)
[2018-08-06] MEDS: NICOTINE 21 MG/24 HOURS TOPICAL PATCH TD SCH (10:30)
--- NOTE | 2018-08-06 11:43 | PN ---
S CIWA - CIWA Score Nausea/Vomitin-No Nausea/No Vomiting Muscle Tremors: 3 Anxiety: 2 Agitation: 3 Paroxysmal Sweats: 2 Orientation: 0-Oriented Tacttile Disturbances: 0-None Auditory Disturbances: 0-None Visual Disturbances: 0-None Headache: 0-None Present CIWA-Ar Total Score: 10 S Progress Note (SOAP) Subjective: sweats tired interrupted sleep body aches Objective: 08/06/18 11:45 Vital Signs Temperature 97.2 F L 08/06/18 09:17 Pulse Rate 64 08/06/18 09:17 Respiratory Rate 17 08/06/18 09:17 Blood Pressure 100/65 08/06/18 09:17 O2 Sat by Pulse Oximetry (%) Laboratory Tests 08/03/18 08/04/18 08/04/18 23:20 07:50 07:50 WBC 3.0 L RBC 3.60 Hgb 11.7 Hct 35.1 MCV 97.6 H MCH 32.6 MCHC 33.4 RDW 21.0 H Plt Count 251 D MPV 7.3 L Sodium 140 Potassium 3.7 Chloride 105 Carbon Dioxide 30 Anion Gap 5 L BUN 4.9 L Creatinine 0.5 L Est GFR (CKD-EPI)AfAm 133.58 Est GFR (CKD-EPI)NonAf 115.25 Random Glucose 95 Calcium 8.9 Total Bilirubin 0.6 AST 28 ALT 32 Alkaline Phosphatase 81 Total Protein 5.8 L Albumin 3.4 POC Urine HCG, Qual Negative RPR Titer 08/04/18 07:50 WBC RBC Hgb Hct MCV MCH MCHC RDW Plt Count MPV Sodium Potassium Chloride Carbon Dioxide Anion Gap BUN Creatinine Est GFR (CKD-EPI)AfAm Est GFR (CKD-EPI)NonAf Random Glucose Calcium Total Bilirubin AST ALT Alkaline Phosphatase Total Protein Albumin POC Urine HCG, Qual RPR Titer Nonreactive aaox3 ambulating no acute distress Assessment: 08/06/18 11:46 withdrawal sx Plan: continue detox increase fluids
[2018-08-06] MEDS ORDERED: traZODone HCL 50 MG TABLET (FP) ONE (21:52)
[2018-08-06] MEDS ORDERED: traZODone HCL 100 MG TABLET (FP) ONE (21:52)
[2018-08-06] MEDS: traZODone HCL 100 MG, traZODone HCL 50 MG PO SCH (22:08)
[2018-08-06] MEDS: THIAMINE HCL 100 MG TABLET (FP) PO SCH (22:11)
[2018-08-06] MEDS: NADOLOL 20 MG TABLET (FP) PO SCH (22:24)
[2018-08-07] MEDS: GABAPENTIN 300 MG CAPSULE (FP) PO SCH ×3 (06:35→22:17)
[2018-08-07] MEDS: chlordiazePOXIDE HCL 10 MG CAPSULE PO SCH ×2 (06:35→17:21)
[2018-08-07] MEDS ORDERED: hydrOXYzine PAMOATE 50 MG CAPSULE (FP) PO PRN (09:01)
[2018-08-07] MEDS ORDERED: BACITRACIN 0.9 GM PACKET ONE (09:43)
--- NOTE | 2018-08-07 10:12 | PN ---
S CIWA - CIWA Score Nausea/Vomitin-No Nausea/No Vomiting Muscle Tremors: 2 Anxiety: 1-Mildly Anxious Agitation: 2 Paroxysmal Sweats: 1-Minimal Palms Moist Orientation: 0-Oriented Tacttile Disturbances: 0-None Auditory Disturbances: 0-None Visual Disturbances: 0-None Headache: 0-None Present CIWA-Ar Total Score: 6 BHS Progress Note (SOAP) Subjective: anxiety interrupted sleep Objective: 08/07/18 10:11 Vital Signs Temperature 97.8 F 08/07/18 09:19 Pulse Rate 74 08/07/18 09:19 Respiratory Rate 18 08/07/18 09:19 Blood Pressure 103/71 08/07/18 09:19 O2 Sat by Pulse Oximetry (%) aaox3 ambulating no acute distress Assessment: 08/07/18 10:12 mild withdrawal sx Plan: continue detox increase fluids d/c at 7am as per pt request
[2018-08-07] MEDS: NICOTINE 21 MG/24 HOURS TOPICAL PATCH TD SCH (10:35)
[2018-08-07] MEDS: PANTOPRAZOLE 20 MG TABLET (FP) PO SCH ×2 (10:35→22:17)
[2018-08-07] MEDS: PRENATAL VITAMINS W/ FOLIC ACID TABLET (FP) PO SCH (10:35)
[2018-08-07] MEDS: BACITRACIN 15 GM TUBE TOPICAL OINTMENT TP SCH ×2 (14:30→22:20)
[2018-08-07] MEDS ORDERED: traZODone HCL 100 MG TABLET (FP) ONE (21:53)
[2018-08-07] MEDS ORDERED: traZODone HCL 50 MG TABLET (FP) ONE (21:53)
[2018-08-07] MEDS: NADOLOL 20 MG TABLET (FP) PO SCH (22:16)
[2018-08-07] MEDS: THIAMINE HCL 100 MG TABLET (FP) PO SCH (22:16)
[2018-08-07] MEDS: traZODone HCL 100 MG, traZODone HCL 50 MG PO SCH (22:17)
[2018-08-07] MEDS: METHOCARBAMOL 500 MG TABLET PO PRN (22:21)
[2018-08-08] MEDS: GABAPENTIN 300 MG CAPSULE (FP) PO SCH (05:41)
[2018-08-08] MEDS: chlordiazePOXIDE HCL 10 MG CAPSULE PO SCH (05:41)
[2018-08-08] MEDS: METHOCARBAMOL 500 MG TABLET PO PRN (05:44)
[2018-08-08 07:41] VITALS: BP 119/76; PULSE 70; TEMP 98.2
--- NOTE | 2018-08-08 15:26 | DS ---
[facility] Detox Discharge Summary Admission Date: 08/04/18 Discharge Date: 08/08/18 - History Present History: Alcohol Dependence Additional Comments: PT COMPLETED DETOX AND DISCHARGED TODAY. PT REPORTS PRIMARY CARE AT [facility]. ALERT O X 3. NAD. DENIES S/H/I. Pertinent Past History: PLEASE SEE DX BELOW - Physical Exam Results Vital Signs: Vital Signs Temperature 98.2 F 08/08/18 07:40 Pulse Rate 70 08/08/18 07:40 Respiratory Rate 18 08/08/18 07:40 Blood Pressure 119/76 08/08/18 07:40 O2 Sat by Pulse Oximetry (%) Pertinent Admission Physical Exam Findings: WITHDRAWAL SX Laboratory Tests 08/03/18 08/04/18 08/04/18 23:20 07:50 07:50 WBC 3.0 L RBC 3.60 Hgb 11.7 Hct 35.1 MCV 97.6 H MCH 32.6 MCHC 33.4 RDW 21.0 H Plt Count 251 D MPV 7.3 L Sodium 140 Potassium 3.7 Chloride 105 Carbon Dioxide 30 Anion Gap 5 L BUN 4.9 L Creatinine 0.5 L Est GFR (CKD-EPI)AfAm 133.58 Est GFR (CKD-EPI)NonAf 115.25 Random Glucose 95 Calcium 8.9 Total Bilirubin 0.6 AST 28 ALT 32 Alkaline Phosphatase 81 Total Protein 5.8 L Albumin 3.4 POC Urine HCG, Qual Negative RPR Titer 08/04/18 07:50 WBC RBC Hgb Hct MCV MCH MCHC RDW Plt Count MPV Sodium Potassium Chloride Carbon Dioxide Anion Gap BUN Creatinine Est GFR (CKD-EPI)AfAm Est GFR (CKD-EPI)NonAf Random Glucose Calcium Total Bilirubin AST ALT Alkaline Phosphatase Total Protein Albumin POC Urine HCG, Qual RPR Titer Nonreactive - Treatment Hospital Course: Detox Protocol Followed, Detoxed Safely, Responded well, Discharged Condition Good - Medication Discharge Medications: Ambulatory Orders Albuterol Sulfate Inhaler - [Ventolin HFA Inhaler -] 2 inh PO Q4H PRN 10/14/16 Gabapentin [Neurontin -] 600 mg PO Q8H 10/14/16 Nadolol 40 mg PO DAILY 08/03/18 Trazodone HCl 150 mg PO HS 08/03/18 hydrOXYzine PAMOATE [Vistaril -] 25 mg PO QID 08/03/18 - Diagnosis (1) Alcohol dependence with uncomplicated withdrawal Status: Acute (2) COPD (chronic obstructive pulmonary disease) Status: Chronic Qualifiers: COPD type: emphysema Emphysema type: unilateral Qualified Code(s): J43.0 - Unilateral pulmonary emphysema [MacLeod's syndrome] (3) GERD (gastroesophageal reflux disease) Status: Chronic Qualifiers: Esophagitis presence: without esophagitis Qualified Code(s): K21.9 - Gastro -esophageal reflux disease without esophagitis (4) History of seizures Status: Chronic (5) Liver cirrhosis Status: Chronic Qualifiers: Hepatic cirrhosis type: alcoholic cirrhosis Ascites presence: without ascites Qualified Code(s): K70.30 - Alcoholic cirrhosis of liver without ascites (6) Neuropathy Status: Chronic (7) Anemia Status: Resolved - AMA Did Patient Leave Against Medical Advice: No
== END 2018-08-08 08:27 | disposition home or self-care (01) | DRG 897 ==
LOC: YASAS 16:49 → Y6N 08-04 01:07
PROVIDERS: ADMIT Surgery; ATTEND Surgery
PROC: HZ2ZZZZ Detoxification Services for Substance Abuse Treatment (ICD-10-PCS; principal; 2018-08-04)
DX: F10.230 Alcohol dependence with withdrawal, uncomplicated (principal); F17.213 Nicotine dependence, cigarettes, with withdrawal; F10.280 Alcohol dependence with alcohol-induced anxiety disorder; F10.282 Alcohol dependence with alcohol-induced sleep disorder; F41.8 Other specified anxiety disorders; F32.9 Major depressive disorder, single episode, unspecified; J43.0 Unilateral pulmonary emphysema [MacLeod's syndrome]; K70.30 Alcoholic cirrhosis of liver without ascites; H55.00 Unspecified nystagmus; D64.9 Anemia, unspecified; M54.5 Low back pain; G89.29 Other chronic pain; M79.7 Fibromyalgia; G62.9 Polyneuropathy, unspecified; R26.89 Other abnormalities of gait and mobility; Z86.69 Personal history of other diseases of the nervous system and sense organs; Z87.19 Personal history of other diseases of the digestive system; Z88.0 Allergy status to penicillin
CPT/HCPCS: 36415; 80053; 81025; 85027; 86593; 93005; 93010

== ENCOUNTER 2019-10-25 16:42 | Inpatient (IN) | payer OTHER ==
--- NOTE | 2019-10-25 18:17 | BHS.RME ---
Substance Use & Tx History - Substance Use History Alcohol Substance amount: 6 x 48oz can beer and 2 glasses of wine Frequency of use: Daily Substance route: Oral Date of Last Use: 10/24/19 - Last Treatment Date of last treatment: 08/04/2018-08/08/2018 Where was last treatment: Detox Physical/Psych/Mental Status - Behavior Eye Contact: Normal - Cooperativeness Cooperativeness: Cooperative - Thinking Thought Processes: Logical Thought content: Future oriented - Physical Health Problems Is patient presently having any pain?: Yes (generalized aches and pain) Does patient presently have any injuries (include location): No Does patient currently have a fever: No Is patient : No CIWA Nausea/Vomitin-Int. Nausea w/Dry Heave Muscle Tremors: 4-Moderate,w/Arms Extend Anxiety: 4-Mod. Anxious/Guarded Agitation: 4-Moderately Restless Paroxysmal Sweats: 2 Orientation: 0-Oriented Tacttile Disturbances: 0-None Auditory Disturbances: 0-None Visual Disturbances: 0-None Headache: 3-Moderate CIWA-Ar Total Score: 21 Treatment Recommendation - Level of Care Level of Care: Opioid Treatment Program (OTP) (Alcohol detoxification)
[2019-10-25 18:55] VITALS: BMI 15.3
--- NOTE | 2019-10-25 19:29 | HP ---
CIWA Score Nausea/Vomitin-Int. Nausea w/Dry Heave Muscle Tremors: 4-Moderate,w/Arms Extend Anxiety: 4-Mod. Anxious/Guarded Agitation: 4-Moderately Restless Paroxysmal Sweats: 3 (Increased facial moisture) Orientation: 0-Oriented Tacttile Disturbances: 0-None Auditory Disturbances: 0-None Visual Disturbances: 0-None Headache: 4-Moderately Severe (Throbbing headache = "9") CIWA-Ar Total Score: 23 - Admission Criteria OASAS Guidelines: Admission for Medically Managed Detox: Requires at least one of the followin. CIWA greater than 12 2. Seizures within the past 24 hours 3. Delirium tremens within the past 24 hours 4. Hallucinations within the past 24 hours 5. Acute intervention needed for co occurring medical disorder 6. Acute intervention needed for co occurring psychiatric disorder 7. Severe withdrawal that cannot be handled at a lower level of care (continued vomiting, continued diarrhea, abnormal vital signs) requiring intravenous medication and/or fluids 8. Patient presents the following: CIWA greater than 12 Admission Criteria Met: Admission criteria met Admitting History and Physical - Past Medical History ...LMP: 10/25/19 - Smoking History Smoking history: Current every day smoker Have you smoked in the past 12 months: Yes Aproximately how many cigarettes per day: 20 - Alcohol/Substance Use Hx Alcohol Use: Yes Admission ROS [facility] - [facility] Chief Complaint: " Here for alcohol detox and long term care social worker goal is to not drink" Allergies/Adverse Reactions: Allergies Allergy/AdvReac Type Severity Reaction Status Date / Time No Known Allergies Allergy Verified 10/25/19 19:43 History of Present Illness: 49 yo w/ alcohol withdrawal symptoms here for detox. Seen at [facility] on today w/ dx alcohol dependence with uncomplicated withdrawal, Epigastric abdominal pain Last [facility] discharge 08/2018. Has since been @ [facility] for detox and rehab. CHARLES: 0.0 UTox: + THC/BZO Hx seizures - Last 1 yr ago. Alcohol use since age 18. Current 6 - 16 oz beers and 2 glasses wine - daily. No use in 2 days. Nicotine use since age 21. Current smokes 1/2 -1 PPD. Denies Marijuana use. (Could be second-hand) PMHx: Seizures, fibromyalgia, gastric ulcer; unsteady gait r/t peripheral neuropathy. Current UTI MHHx: Depression. Anxiety. Sees a MH Provider in the community. Denies thoughts of harming self or others. SHx: Domiciled. Disability. Denies legal issues. Patient Name: Cat Starr Date: 1970 Address: [address] [place] [id number] Sex: Female Rx Written Rx Dispensed Drug Quantity Days Supply Prescriber Name Payment Method Dispenser 06/13/2019 06/13/2019 oxycodone hcl 5 mg tablet 20 5 Jm Carpenter MD Medicare [facility] #[id number] 05/29/2019 05/30/2019 oxycodone hcl 5 mg tablet 20 5 Jm Carpenter MD Medicare [facility] #[id number] 05/21/2019 05/21/2019 oxycodone hcl 5 mg tablet 20 5 Charleen Yoo Medicare [facility] #[id number] 04/26/2019 04/26/2019 lorazepam 2 mg tablet 14 7 Bryn Pringle NP Medicare [facility] #[id number] 02/28/2019 02/28/2019 lorazepam 1 mg tablet 10 3 [facility] Other [facility] #[id number] Exam Limitations: No Limitations - Ebola screening Have you traveled outside of the country in the last 21 days: No (Denies COVID exposure) Have you had contact with anyone from an Ebola affected area: No Have you been sick,other than usual withdrawal symptoms: No Do you have a fever: No - Review of Systems Constitutional: Chills, Diaphoresis, Changes in sleep (Difficulty falling and staying asleep - trazodone use in past) EENT: reports: Blurred Vision, Other (itchy) Respiratory: reports: Cough, Shortness of Breath (Not now - but intermitently) Cardiac: reports: No Symptoms Reported GI: reports: Diarrhea (earleir today), Nausea, Vomiting, Indigestion (heart burn - takes protonix), Other (Butt feels sore) : reports: Burning Musculoskeletal: reports: Back Pain (Chronic back pain - sharp "10" - increases w/ laying on back. Improves w/ walking.) Integumentary: reports: No Symptoms Reported, Other Neuro: reports: Headache (Throbbing headache = "9"), Numbness (in feet and legs - uses walker only when intoxicated), Seizure, Tremors Endocrine: reports: Increased Thirst Hematology: reports: No Symptoms Reported Psychiatric: reports: Judgement Intact, Mood/Affect Appropiate, Orientated x3, Agitated, Anxious, Depressed (Denies thoughts of harming self.) Patient History - Patient Medical History Hx Anemia: Yes Hx Asthma: No Hx Chronic Obstructive Pulmonary Disease (COPD): Yes Hx Cancer: Yes Hx Cardiac Disorders: No Hx Congestive Heart Failure: No Hx Hypertension: No Hx Hypercholesterolemia: No Hx Pacemaker: No HX Cerebrovascular Accident: No Hx Seizures: Yes (alcohol related-last episode was 10/13/16) Hx Dementia: No Hx Diabetes: No Hx Gastrointestinal Disorders: No Hx Liver Disease: Yes (cirhosis of the liver) Hx Genitourinary Disorders: No Hx Sexually Transmitted Disorders: No Hx Renal Disease (ESRD): No Hx Thyroid Disease: No Hx Human Immunodeficiency Virus (HIV): (NEGATIVE HX) Hx Hepatitis C: No Hx Depression: Yes (NO CURRENT MED) Hx Suicide Attempt: No (DENIES) Hx Bipolar Disorder: No Hx Schizophrenia: No - Patient Surgical History Past Surgical History: Yes Hx Neurologic Surgery: No Hx Cataract Extraction: No Hx Cardiac Surgery: No Hx Lung Surgery: No Hx Breast Surgery: No Hx Breast Biopsy: No Hx Abdominal Surgery: No Hx Appendectomy: No Hx Cholecystectomy: No Hx Genitourinary Surgery: No Hx Section: No Hx Orthopedic Surgery: No Hx Hysterectomy: No Other Surgical History: vein stripping, right leg at age 27 Anesthesia Reaction: No - PPD History Previous Implant?: Yes Documented Results: Negative w/proof Implanted On Prior [facility] Admission?: Yes Date: 10/16/16 PPD to be Administered?: Yes - Reproductive History Patient is a Female of Child Bearing Age (11 -55 yrs old): Yes Patient : No - Smoking Cessation Smoking history: Current every day smoker Have you smoked in the past 12 months: Yes Aproximately how many cigarettes per day: 20 Cigars Per Day: 0 Hx Chewing Tobacco Use: No Initiated information on smoking cessation: Yes 'Breaking Loose' booklet given: 10/25/19 - Substance & Tx. History Hx Alcohol Use: Yes Hx Substance Use: Yes Substance Use Type: Alcohol Hx Substance Use Treatment: Yes (detox, rehab) - Substances abused Alcohol Substance route: Oral Frequency: Daily Amount used: wine- 1 litre, beer- 1 six pack Age of first use: 19 Date of last use: 10/24/19 Admission Physical Exam S - Vital Signs Vital Signs: Vital Signs - 24 hr 10/25/19 18:53 Temperature 97.4 F L Pulse Rate 87 Respiratory 18 Rate Blood Pressure 150/85 - Physical General Appearance: Yes: Mild Distress, Moderate Distress, Thin, Tremorous, Sweating (Increased facial moisture), Anxious HEENTM: Yes: EOMI, Hearing grossly Normal, Normocephalic, Normal Voice, AMINA, Pharynx Normal, Other (Perforated nasal septum) Respiratory: Yes: Lungs Clear, Normal Breath Sounds, No Respiratory Distress Neck: Yes: No masses,lesions,Nodules, Supple Breast: Yes: Breast Exam Deferred Cardiology: Yes: Regular Rhythm, Regular Rate, S1, S2 Abdominal: Yes: Non Tender, Flat, Soft, Increased Bowel Sounds Genitourinary: Yes: Within Normal Limits Back: Yes: Normal Inspection Musculoskeletal: Yes: full range of Motion, Gait Steady Extremities: Yes: Normal Capillary Refill, Other (Scrape (R) galeana w/ scabbing) Neurological: Yes: sample stitcher II-XII NML intact, Fully Oriented, Alert, Motor Strength 5/5, Normal Mood/Affect, Normal Response Integumentary: Yes: Normal Color, Warm, Other (Skin breakdown w/ 10 mm ulcer (L) gluteal fold w/ erythema @ bilateral inner gluteal folds) Lymphatic: Yes: Within Normal Limits - Diagnostic (1) Skin ulcer Current Visit: Yes Status: Acute Qualifiers: Non-pressure ulcer stage: limited to breakdown of skin Qualified Code(s): L98.491 - Non-pressure chronic ulcer of skin of other sites limited to breakdown of skin Comment: Skin breakdown w/ 10 mm ulcer (L) gluteal fold w/ erythema bilateral inner gluteal folds (2) Perforated nasal septum Current Visit: Yes Status: Chronic (3) Alcohol dependence with uncomplicated withdrawal Current Visit: Yes Status: Acute (4) Epigastric abdominal pain Current Visit: Yes Status: Chronic (5) COPD (chronic obstructive pulmonary disease) Current Visit: Yes Status: Chronic Qualifiers: Emphysema type: unspecified (6) GERD (gastroesophageal reflux disease) Current Visit: Yes Status: Chronic Qualifiers: Esophagitis presence: without esophagitis Qualified Code(s): K21.9 - Gastro-esophageal reflux disease without esophagitis (7) History of seizures Current Visit: Yes Status: Chronic (8) History of unsteady gait Current Visit: Yes Status: Chronic (9) Nicotine dependence Current Visit: Yes Status: Chronic Qualifiers: Nicotine product type: cigarettes Substance use status: uncomplicated Qualified Code(s): F17.210 - Nicotine dependence, cigarettes, uncomplicated (10) UTI (urinary tract infection) Current Visit: Yes Status: Acute Qualifiers: Urinary tract infection type: site unspecified Hematuria presence: without hematuria Qualified Code(s): N39.0 - Urinary tract infection, site not specified Cleared for Admission [facility] - Detox or Rehab [facility] Level of Care: Medically Managed Detox Regimen/Protocol: Librium Claeared for Rehab Admission: No Breathalyzer - Breathalyzer Breathalyzer: 0 Urine Drug Screen - Test Device Lot number: [id number] Expiration date: 09/09/21 - Control Is test valid?: Yes - Results Drug screen NEGATIVE: No Urine drug screen results: THC-Marijuana, BZO-Benzodiazepines Inpatient Rehab Admission - Rehab Decision to Admit Inpatient rehab admission?: No
[2019-10-25] MEDS ORDERED: ACETAMINOPHEN 325 MG TABLET (FP) PO PRN ×2 (20:29)
[2019-10-25] MEDS ORDERED: MAG HYDROX/AL HYDROX/SIMETH 30 ML UNIT-DOSE CUP PO PRN (20:29)
[2019-10-25] MEDS ORDERED: MAGNESIUM CITRATE 300 ML BOTTLE PO PRN (20:29)
[2019-10-25] MEDS ORDERED: NICOTINE POLACRILEX 2 MG GUM BUC PRN (20:29)
[2019-10-25] MEDS ORDERED: BISMUTH SUBSALICYLATE 524 MG/30 ML UD PO PRN (20:29)
[2019-10-25] MEDS ORDERED: MENTHOL/PHENOL 1 EACH UD MM PRN (20:29)
[2019-10-25] MEDS ORDERED: MAGNESIUM HYDROX 2400MG/30ML ORAL SUSPENSION 30 ML CUP PO PRN (20:29)
[2019-10-25] MEDS ORDERED: IBUPROFEN 400 MG TABLET (FP) PO PRN (20:29)
[2019-10-25] MEDS ORDERED: METHOCARBAMOL 500 MG TABLET PO PRN (20:29)
[2019-10-25] MEDS ORDERED: COD LIVER OIL/ZINC OXIDE PASTE 56 GM TUBE TP PRN (20:39)
[2019-10-25] MEDS ORDERED: TRIMETHOBENZAMIDE HCL 200MG/2ML INJ IM PRN (20:45)
[2019-10-25] MEDS ORDERED: chlordiazePOXIDE HCL 25 MG CAPSULE PO ONE (20:59)
[2019-10-25] MEDS ORDERED: levETIRAcetam 500 MG TABLET (FP) PO ONE (21:30)
[2019-10-25] MEDS ORDERED: levETIRAcetam 250 MG TABLET PO ONE (21:31)
[2019-10-25] MEDS: guaiFENesin 200 MG/10 ML 10 ML UNIT-DOSE CUPS PO SCH (21:35)
[2019-10-25] MEDS: GABAPENTIN 300 MG CAPSULE PO SCH (21:36)
[2019-10-25] MEDS: ONDANSETRON *ODT* 4 MG TABLET SL PRN (21:38)
[2019-10-25] MEDS: THIAMINE HCL 100 MG TABLET (FP) PO SCH (21:44)
[2019-10-25] MEDS ORDERED: levETIRAcetam 500 MG TABLET (FP) PO SCH (22:00)
[2019-10-25] MEDS ORDERED: PANTOPRAZOLE 20 MG TABLET PO ONE (22:00)
[2019-10-25] MEDS: chlordiazePOXIDE HCL 25 MG CAPSULE PO SCH (22:20)
[2019-10-25] MEDS: MELATONIN 5 MG TABLETS PO SCH (22:21)
[2019-10-25] MEDS ORDERED: traZODone HCL 50 MG TABLET (FP) PO ONE (23:00)
[2019-10-26] MEDS: BACITRACIN 15 GM TUBE TOPICAL OINTMENT TP SCH ×3 (00:06→22:42)
[2019-10-26] MEDS: NITROFURANTOIN MACROCRYSTAL 50 MG CAPSULE (FP) PO SCH ×5 (04:19→23:57)
[2019-10-26] MEDS: chlordiazePOXIDE HCL 25 MG CAPSULE PO SCH ×4 (06:02→22:40)
[2019-10-26] MEDS: GABAPENTIN 300 MG CAPSULE PO SCH ×3 (06:03→22:40)
[2019-10-26] MEDS ORDERED: levETIRAcetam 250 MG TABLET PO ONE ×2 (08:46→21:48)
[2019-10-26] MEDS ORDERED: levETIRAcetam 500 MG TABLET (FP) PO ONE ×2 (08:46→21:48)
[2019-10-26 09:16] LABS: HEMATOCRIT 35.8 % (32.4-45.2); HEMOGLOBIN 12.1 GM/dL (10.7-15.3); MCH 31.5 pg (25.7-33.7); MCHC 33.7 g/dl (32.0-36.0); MEAN CELL VOLUME 93.6 fl (80-96); MEAN PLT VOLUME 7.7 fl (7.5-11.1); PLATELET COUNT 115 K/MM3 (134-434); RBC 3.83 M/mm3 (3.60-5.2); RDW 13.3 % (11.6-15.6); WHITE BLOOD COUNT 4.2 K/mm3 (4.0-10.0)
[2019-10-26 09:32] LABS: ALBUMIN 3.4 g/dl (3.4-5.0); BLOOD UREA NITROGEN 16.4 mg/dL (7-18); CALCIUM 8.4 mg/dL (8.5-10.1); CREATININE 0.5 mg/dL (0.55-1.3); POTASSIUM 3.3 mmol/L (3.5-5.1); TOT PROT 6.1 g/dl (6.4-8.2)
[2019-10-26] MEDS ORDERED: NADOLOL 40 MG TABLET (FP) PO SCH (10:00)
[2019-10-26] MEDS ORDERED: POTASSIUM CHLORIDE TABS 20 MEQ TABLET.ER (FP) PO ONE (10:18)
--- NOTE | 2019-10-26 10:18 | PN ---
[facility] CIWA - CIWA Score Nausea/Vomitin-No Nausea/No Vomiting Muscle Tremors: 3 Anxiety: 3 Agitation: 2 Paroxysmal Sweats: 3 Orientation: 0-Oriented Tacttile Disturbances: 0-None Auditory Disturbances: 0-None Visual Disturbances: 0-None Headache: 2-Mild CIWA-Ar Total Score: 13 S Progress Note (SOAP) Subjective: Complaints of headache, sweats, shakes, agitation, and anxiety. Objective: 10/26/19 10:13 Vital Signs 10/26/19 05:55 Temperature 98.0 F Pulse Rate 88 Respiratory 20 Rate Blood Pressure 126/83 O2 Sat by Pulse 98 Oximetry (%) Laboratory Last Values WBC 4.2 K/mm3 (4.0-10.0) 10/26/19 07:45 RBC 3.83 M/mm3 (3.60-5.2) 10/26/19 07:45 Hgb 12.1 GM/dL (10.7-15.3) 10/26/19 07:45 Hct 35.8 % (32.4-45.2) 10/26/19 07:45 MCV 93.6 fl (80-96) 10/26/19 07:45 MCH 31.5 pg (25.7-33.7) 10/26/19 07:45 MCHC 33.7 g/dl (32.0-36.0) 10/26/19 07:45 RDW 13.3 % (11.6-15.6) 10/26/19 07:45 Plt Count 115 K/MM3 (134-434) L 10/26/19 07:45 MPV 7.7 fl (7.5-11.1) 10/26/19 07:45 Sodium 138 mmol/L (136-145) 10/26/19 07:45 Potassium 3.3 mmol/L (3.5-5.1) L 10/26/19 07:45 Chloride 104 mmol/L (98-107) 10/26/19 07:45 Carbon Dioxide 27 mmol/L (21-32) 10/26/19 07:45 Anion Gap 7 MMOL/L (8-16) L 10/26/19 07:45 BUN 16.4 mg/dL (7-18) 10/26/19 07:45 Creatinine 0.5 mg/dL (0.55-1.3) L 10/26/19 07:45 Est GFR (CKD-EPI)AfAm 132.65 10/26/19 07:45 Est GFR (CKD-EPI)NonAf 114.45 10/26/19 07:45 Random Glucose 116 mg/dL (74-106) H 10/26/19 07:45 Calcium 8.4 mg/dL (8.5-10.1) L 10/26/19 07:45 Total Bilirubin 1.0 mg/dL (0.2-1) 10/26/19 07:45 AST 55 U/L (15-37) H 10/26/19 07:45 ALT 45 U/L (13-61) 10/26/19 07:45 Alkaline Phosphatase 102 U/L (45-117) 10/26/19 07:45 Total Protein 6.1 g/dl (6.4-8.2) L 10/26/19 07:45 Albumin 3.4 g/dl (3.4-5.0) 10/26/19 07:45 Labs noted with mild hypokalemia. Assessment: 10/26/19 10:17 Alert and oriented x 3, in no acute distress. Full ROM, ambulating in the unit without assistance. Skin was to touch with any lesions. Withdrawal symptoms. Hypokalemia. Plan: Continue detox protocol. Replace Potassium. Repeat BMP in AM.
[2019-10-26] MEDS: NICOTINE 14 MG/24 HOURS TOPICAL PATCH TD SCH (10:41)
[2019-10-26] MEDS: PANTOPRAZOLE 40 MG TABLET PO SCH (10:43)
[2019-10-26] MEDS: PRENATAL VITAMINS W/ FOLIC ACID TABLET (FP) PO SCH (10:43)
[2019-10-26] MEDS: guaiFENesin 200 MG/10 ML 10 ML UNIT-DOSE CUPS PO SCH ×2 (10:43→22:42)
[2019-10-26] MEDS: ONDANSETRON *ODT* 4 MG TABLET SL PRN ×2 (10:43→22:48)
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
[2019-10-26] MEDS: chlordiazePOXIDE HCL 10 MG CAPSULE PO PRN ×2 (14:05→20:14)
[2019-10-26] MEDS ORDERED: NADOLOL 20 MG TABLET (FP) PO SCH (15:45)
[2019-10-26] MEDS: NADOLOL 20 MG TABLET (FP) PO SCH (17:36)
[2019-10-26] MEDS ORDERED: traZODone HCL 50 MG TABLET (FP) PO SCH (22:00)
[2019-10-26] MEDS: THIAMINE HCL 100 MG TABLET (FP) PO SCH (22:40)
[2019-10-26] MEDS: MELATONIN 5 MG TABLETS PO SCH (22:42)
[2019-10-27] MEDS: chlordiazePOXIDE HCL 10 MG CAPSULE PO SCH ×2 (06:02→10:18)
[2019-10-27] MEDS: NITROFURANTOIN MACROCRYSTAL 50 MG CAPSULE (FP) PO SCH (06:03)
[2019-10-27] MEDS: GABAPENTIN 300 MG CAPSULE PO SCH (06:04)
[2019-10-27] MEDS ORDERED: levETIRAcetam 500 MG TABLET (FP) PO ONE (08:48)
[2019-10-27] MEDS ORDERED: levETIRAcetam 250 MG TABLET PO ONE (08:48)
[2019-10-27] MEDS: BACITRACIN 15 GM TUBE TOPICAL OINTMENT TP SCH (10:18)
[2019-10-27] MEDS: PANTOPRAZOLE 40 MG TABLET PO SCH (10:18)
[2019-10-27] MEDS: NADOLOL 20 MG TABLET (FP) PO SCH (10:18)
[2019-10-27] MEDS: PRENATAL VITAMINS W/ FOLIC ACID TABLET (FP) PO SCH (10:18)
[2019-10-27] MEDS: NICOTINE 14 MG/24 HOURS TOPICAL PATCH TD SCH (10:18)
[2019-10-27] MEDS: guaiFENesin 200 MG/10 ML 10 ML UNIT-DOSE CUPS PO SCH (10:19)
[2019-10-27] MEDS: ONDANSETRON *ODT* 4 MG TABLET SL PRN (10:19)
[2019-10-27 11:20] LABS: CREATININE 0.6 mg/dL (0.55-1.3)
[2019-10-27 11:21] LABS: BLOOD UREA NITROGEN 11.5 mg/dL (7-18); CALCIUM 8.7 mg/dL (8.5-10.1); POTASSIUM 3.9 mmol/L (3.5-5.1)
[2019-10-27 13:16] VITALS: BP 109/74; PULSE 79; TEMP 96.6
--- NOTE | 2019-10-27 18:34 | DS ---
[facility] Detox Discharge Summary Admission Date: 10/25/19 Discharge Date: 10/27/19 - History Present History: Alcohol Dependence Additional Comments: Pt decided to leave AMA despite encouragement from staff to complete detox. Pt instructed to call 911 ELLIOT if sick or withdrawal sxs and to see her PCP within 3 days. Pt left in stable condition. Pertinent Past History: Gastric ulcer Fibromyalgia Anemia COPD GERD Liver cirrhosis - Physical Exam Results Vital Signs: Vital Signs Temperature 96.6 F L 10/27/19 12:38 Pulse Rate 79 10/27/19 12:38 Respiratory Rate 17 10/27/19 12:38 Blood Pressure 109/74 10/27/19 12:38 O2 Sat by Pulse Oximetry (%) 99 10/27/19 08:49 Pertinent Admission Physical Exam Findings: Withdrawal sxs Patient c/o rash to buttock cheeks and it itches sometimes, stated she was promised by admitting medical provider to get desitin but never received it PE: Patient examined with Vrt Mechanic Ms. Dannielle MA Inner folds of buttocks noted with moderately erythemic abrasions No drainage noted Laboratory Tests 10/25/19 10/26/19 10/26/19 21:35 07:45 07:45 WBC 4.2 RBC 3.83 Hgb 12.1 Hct 35.8 MCV 93.6 MCH 31.5 MCHC 33.7 RDW 13.3 Plt Count 115 L MPV 7.7 Sodium 138 Potassium 3.3 L Chloride 104 Carbon Dioxide 27 Anion Gap 7 L BUN 16.4 Creatinine 0.5 L Est GFR (CKD-EPI)AfAm 132.65 Est GFR (CKD-EPI)NonAf 114.45 Random Glucose 116 H Calcium 8.4 L Total Bilirubin 1.0 AST 55 H ALT 45 Alkaline Phosphatase 102 Total Protein 6.1 L Albumin 3.4 Syphilis Serology COVID-19 (ROBERTO) Not detected 10/26/19 10/27/19 07:45 07:30 WBC RBC Hgb Hct MCV MCH MCHC RDW Plt Count MPV Sodium 138 Potassium 3.9 Chloride 103 Carbon Dioxide 29 Anion Gap 6 L BUN 11.5 Creatinine 0.6 Est GFR (CKD-EPI)AfAm 124.92 Est GFR (CKD-EPI)NonAf 107.78 Random Glucose 108 H Calcium 8.7 Total Bilirubin AST ALT Alkaline Phosphatase Total Protein Albumin Syphilis Serology Non-reactive COVID-19 (ROBERTO) Labs reviewed - Medication Discharge Medications: Ambulatory Orders Albuterol Sulfate Inhaler - [Ventolin HFA Inhaler -] 2 inh PO Q4H PRN 10/14/16 Gabapentin [Neurontin -] 600 mg PO AM 10/14/16 Nadolol 40 mg PO DAILY 08/03/18 Trazodone HCl 150 mg PO HS 08/03/18 Gabapentin 900 mg PO HS 10/25/19 Nitrofurantoin Monohyd/M-Cryst [Macrobid -] 100 mg PO BID 7 Days #14 capsule 10/25/19 levETIRAcetam [Keppra -] 750 mg PO BID 10/25/19 - Diagnosis (1) Alcohol dependence with uncomplicated withdrawal Status: Acute (2) Skin ulcer Status: Acute Qualifiers: Non-pressure ulcer stage: limited to breakdown of skin Qualified Code(s): L98.491 - Non-pressure chronic ulcer of skin of other sites limited to breakdown of skin (3) COPD (chronic obstructive pulmonary disease) Status: Chronic Qualifiers: Emphysema type: unspecified (4) GERD (gastroesophageal reflux disease) Status: Chronic Qualifiers: Esophagitis presence: without esophagitis Qualified Code(s): K21.9 - Gastro-esophageal reflux disease without esophagitis (5) History of depression Status: Chronic (6) Liver cirrhosis Status: Chronic Qualifiers: Hepatic cirrhosis type: alcoholic cirrhosis Ascites presence: without ascites Qualified Code(s): K70.30 - Alcoholic cirrhosis of liver without ascites (7) Nicotine dependence Status: Chronic Qualifiers: Nicotine product type: cigarettes Substance use status: uncomplicated Qualified Code(s): F17.210 - Nicotine dependence, cigarettes, uncomplicated - AMA Did Patient Leave Against Medical Advice: Yes (Patient instructed to call 911 ELLIOT if sick/withdrawal sxs)
[2019-10-28] MEDS ORDERED: chlordiazePOXIDE HCL 10 MG CAPSULE PO PRN
[2019-10-28] MEDS ORDERED: chlordiazePOXIDE 5 MG CAPSULE PO SCH (05:00)
[2019-10-29] MEDS ORDERED: chlordiazePOXIDE HCL 10 MG CAPSULE PO SCH (05:00)
[2019-10-30] MEDS ORDERED: chlordiazePOXIDE HCL 10 MG CAPSULE PO ONE (05:00)
== END 2019-10-27 13:15 | disposition left against medical advice (07) | DRG 894 ==
LOC: YASAS 16:42 → Y6N 20:08
PROVIDERS: ADMIT Allergy & Immunology; ATTEND Allergy & Immunology
PROC: HZ2ZZZZ Detoxification Services for Substance Abuse Treatment (ICD-10-PCS; principal; 2019-10-25)
DX: F10.230 Alcohol dependence with withdrawal, uncomplicated (principal); N39.0 Urinary tract infection, site not specified; G40.509 Epileptic seizures related to external causes, not intractable, without status epilepticus; F17.210 Nicotine dependence, cigarettes, uncomplicated; F19.24 Other psychoactive substance dependence with psychoactive substance-induced mood disorder; F32.9 Major depressive disorder, single episode, unspecified; E87.6 Hypokalemia; G47.00 Insomnia, unspecified; G62.9 Polyneuropathy, unspecified; J44.9 Chronic obstructive pulmonary disease, unspecified; K70.30 Alcoholic cirrhosis of liver without ascites; K21.9 Gastro-esophageal reflux disease without esophagitis; L98.491 Non-pressure chronic ulcer of skin of other sites limited to breakdown of skin; M79.7 Fibromyalgia; J34.89 Other specified disorders of nose and nasal sinuses; R10.13 Epigastric pain; R26.89 Other abnormalities of gait and mobility; Z86.2 Personal history of diseases of the blood and blood-forming organs and certain disorders involving the immune mechanism; Z86.69 Personal history of other diseases of the nervous system and sense organs; Z91.410 Personal history of adult physical and sexual abuse; Z56.0 Unemployment, unspecified
CPT/HCPCS: 36415; 71045-TC-FY; 76705-TC; 80048; 80053; 80177; 81003; 81025; 83690; 83735; 84100; 85025; 85027; 86780; 90832-95; 93005; 93010; J0131; Q0162; U0003